=== PATIENT | female | born 1995 | race Caucasian/White ===

== ENCOUNTER 2017-08-05 07:00 | Day surgery (SDC) | payer OTHER | END 2017-08-05 20:00 | disposition home or self-care (01) | LOC: CIR.AMB 07:00 | DX: O02.1 Missed abortion (principal) ==

== ENCOUNTER 2024-01-19 14:11 | Outpatient (CLI) | payer OTHER | END 2024-01-19 14:15 | disposition home or self-care (01) | LOC: PRENATAL 14:11 | PROVIDERS: ATTEND Obstetrics & Gynecology Maternal & Fetal Medicine | DX: O36.80X0 Pregnancy with inconclusive fetal viability, not applicable or unspecified (principal); Z36.82 Encounter for antenatal screening for nuchal translucency; Z14.8 Genetic carrier of other disease; Z3A.14 14 weeks gestation of pregnancy ==

== ENCOUNTER 2024-01-31 16:16 | Emergency (ER) | payer OTHER ==
[~2024-01-31] VITALS: Ht 170.2 cm; Wt 70.8 kg
[2024-01-31] MEDS ORDERED: ELVITEG/COB/EMTRI/TENOFO DISOP 1 UDTAB TABLET PO ONE (17:30)
[2024-01-31] MEDS ORDERED: EMTRICITABINE/TENOFOV ALAFENAM 1 EACH TABLET PO ONE (17:45)
[2024-01-31 18:25] LABS: HEMATOCRIT 35.8 % (36.0-45.00); HEMOGLOBIN 12.2 g/dL (12.0-15.00); MEAN CELL VOLUME 92.7 fL (80.00-100.00); MEAN CORPUSCULAR HEMOGLOBIN 31.6 pg (27.00-32.0); MEAN CORPUSCULAR HGB CONC 34.1 g/dl (32.0-36.0); PLATELET COUNT 230 K/uL (150-450); RED BLOOD COUNT 3.86 M/uL (4.00-6.00); RED CELL DISTRIBUTION WIDTH 13.6 % (11.5-14.5)
[2024-01-31 18:58] LABS: ALBUMIN 3.1 gm/dL (3.4-5.0); BILIRUBIN TOTAL 0.14 mg/dL (0.3-1.2); CALCIUM 8.9 mg/dL (8.5-10.1); CREATININE SERUM 0.47 mg/dL (0.55-1.02); GFR 155.59; GLOBULINA 3.7 G/DL (2.4-3.5); POTASSIUM 4.13 mEq/L (3.5-5.1); TOTAL PROTEIN 6.8 gm/dL (6.4-8.2)
== END 2024-01-31 18:29 | disposition home or self-care (01) ==
LOC: ER 16:18
PROVIDERS: General Practice
DX: O26.892 Other specified pregnancy related conditions, second trimester (principal); Z3A.16 16 weeks gestation of pregnancy; S61.042A Puncture wound with foreign body of left thumb without damage to nail, initial encounter; W26.8XXA Contact with other sharp object(s), not elsewhere classified, initial encounter; Y93.F9 Activity, other caregiving; Y92.230 Patient room in hospital as the place of occurrence of the external cause; Z20.822 Contact with and (suspected) exposure to COVID-19; Z88.8 Allergy status to other drugs, medicaments and biological substances

== ENCOUNTER 2024-03-08 12:53 | Outpatient (CLI) | payer OTHER | END 2024-03-08 12:55 | disposition home or self-care (01) | LOC: PRENATAL 12:53 | PROVIDERS: ATTEND Obstetrics & Gynecology Maternal & Fetal Medicine | DX: O35.3XX0 Maternal care for (suspected) damage to fetus from viral disease in mother, not applicable or unspecified (principal); O44.00 Complete placenta previa NOS or without hemorrhage, unspecified trimester; Z3A.21 21 weeks gestation of pregnancy ==

== ENCOUNTER 2024-05-24 15:13 | Outpatient (CLI) | payer OTHER | END 2024-05-24 15:15 | disposition home or self-care (01) | LOC: PRENATAL 15:13 | PROVIDERS: ATTEND Obstetrics & Gynecology Maternal & Fetal Medicine | DX: O26.849 Uterine size-date discrepancy, unspecified trimester (principal); O36.8199 Decreased fetal movements, unspecified trimester, other fetus; O99.019 Anemia complicating pregnancy, unspecified trimester; Z3A.32 32 weeks gestation of pregnancy ==

== ENCOUNTER 2024-07-11 12:44 | Outpatient (CLI) | payer OTHER ==
[2024-07-11 11:47] VITALS: BP 117/77
[2024-07-11] MEDS ORDERED: PRENATAL + DHA1 EAC1 PO (14:01)
[2024-07-11 15:25] VITALS: BP 120/82
[2024-07-11 15:48] VITALS: BP 120/82
== END 2024-07-11 15:48 | disposition home or self-care (01) ==
LOC: OBS/DEL 12:44
PROVIDERS: ATTEND Obstetrics & Gynecology
DX: O26.893 Other specified pregnancy related conditions, third trimester (principal); Z3A.39 39 weeks gestation of pregnancy

== ENCOUNTER 2024-07-12 13:55 | Inpatient (IN) | payer OTHER ==
[~2024-07-12] VITALS: Ht 170.2 cm; Wt 3.2 kg
[~2024-07-12 13:55] MED LIST: PRENATAL + DHA1 EAC1 PO
[2024-07-12] MEDS ORDERED: RINGERS SOLUTION,LACTATED 1,000 ML IV SCH (14:15)
[2024-07-12] MEDS ORDERED: AMPICILLIN SODIUM 2,000 MG VIAL IV ONE (14:15)
[2024-07-12] MEDS ORDERED: OXYTOCIN 500 ML IV SCH (14:15)
[2024-07-12] MEDS ORDERED: AMPICILLIN SODIUM 1,000 MG VIAL IV SCH (17:00)
[2024-07-12 17:27] VITALS: BP 129/82
[2024-07-12 18:01] LABS: PROTHROMBIN TIME 9.7 SECONDS (9.0-11.5)
[2024-07-12 18:02] LABS: INR < 0.93; PARTIAL THROMBOPLASTIN TIME 26.3 SECONDS (22.0-34.0)
[2024-07-12] MEDS ORDERED: OXYTOCIN 10 UNITS/ML VIAL ONE (19:37)
[2024-07-12] MEDS ORDERED: ERYTHROMYCIN BASE OPHT 1GM EACH TUBE OP ONE (19:38)
[2024-07-12 19:53] LABS: BASO % 0.5 % (0.1-1.2); EOS % 1.5 % (0.7-7.0); HEMATOCRIT 38.7 % (34.1-44.9); HEMOGLOBIN 12.6 g/dL (11.2-15.7); LYMPH % 23.2 % (19.3-53.1); MONO % 7.6 % (4.7-12.5); NEUT % 66.8 % (34.0-71.1); PLATELET COUNT 244 K/uL (163-369)
[2024-07-12] MEDS ORDERED: MORPHINE SULFATE 4 MG/ML VIAL IV SCH (21:00)
[2024-07-12] MEDS ORDERED: AMPICILLIN SODIUM 1,000 MG VIAL ONE (21:39)
[2024-07-12 21:41] LABS: PH,URINE 7.5 (5.0-8.0); URINE APPEARANCE Clear; URINE BACTERIA 59.9 uL (0.0-1933); URINE BILIRRUBIN Negative (NEGATIVE); URINE COLOR Yellow; URINE EPITHELIAL CELLS 15.1 uL (0.0-38.8); URINE GLUCOSE Negative (NEGATIVE); URINE KETONE Negative (NEGATIVE); URINE LEUKOCYTE Negative; URINE NITRATE Negative; URINE PROTEIN Negative (NEGATIVE); URINE RBC 47.5 uL (0.0-20.8); URINE WBC 3.3 uL (0.0-23.2)
[2024-07-12 21:46] LABS: URINE BLOOD TRACE
[2024-07-12] MEDS ORDERED: MORPHINE SULFATE 4 MG/ML VIAL IV ONE (22:00)
[2024-07-12 22:40] VITALS: BP 119/77
[2024-07-13 00:26] VITALS: BP 121/73
[2024-07-13] MEDS ORDERED: KETOROLAC TROMETHAMINE 30 MG VIAL IV PRN (01:45)
[2024-07-13 06:07] VITALS: BP 117/71
[2024-07-13 07:09] LABS: HEMOGLOBIN 11.7 g/dL (11.2-15.7); RED BLOOD COUNT 3.84 M/uL (3.93-5.22)
[2024-07-13 07:10] LABS: BASO % 0.3 % (0.1-1.2); EOS # 0.03 (0.04-0.54); EOS % 0.2 % (0.7-7.0); HEMATOCRIT 35.4 % (34.1-44.9); LYMPH # 1.63 (1.18-3.74); LYMPH % 12.3 % (19.3-53.1); MEAN CORPUSCULAR HEMOGLOBIN 30.5 pg (25.6-32.2); MONO # 0.77 (0.24-0.82); MONO % 5.8 % (4.7-12.5); NEUT # 10.78 (1.56-6.13); PLATELET COUNT 196 K/uL (163-369); RED CELL DISTRIBUTION WIDTH 15.7 % (11.6-14.4)
[2024-07-13 08:00] VITALS: BP 110/69
[2024-07-13] MEDS ORDERED: OxyCODONE HCL 5 MG TABLET (ROXICODONE) PO PRN (08:00)
[2024-07-13] MEDS ORDERED: ACETAMINOPHEN 325 MG TABLET PO SCH (08:00)
[2024-07-13] MEDS ORDERED: OxyCODONE HCL/APAP UD (PERCOCET) PO PRN (08:00)
[2024-07-13] MEDS ORDERED: DOCUSATE SODIUM 100MG CAP PO SCH (09:00)
[2024-07-13] MEDS ORDERED: SIMETHICONE 125 MG CAPSULE PO SCH (09:00)
[2024-07-13] MEDS ORDERED: PNV,CALCIUM 72/IRON/FOLIC ACID 1 TAB TABLET PO SCH (09:00)
[2024-07-13 15:47] VITALS: BP 111/73
[2024-07-14 00:18] VITALS: BP 114/75
[2024-07-14 04:55] VITALS: BP 117/80
[2024-07-14 08:54] VITALS: BP 117/78; O2SAT 98
[2024-07-14 13:00] VITALS: BP 110/75; O2SAT 98
[2024-07-14 16:13] VITALS: BP 130/70
[2024-07-15] VITALS: BP 134/80
[2024-07-15 08:13] VITALS: BP 122/73
[2024-07-15] MEDS ORDERED: IBUprofen 600 MG TABLET PO PRN (10:45)
== END 2024-07-15 19:09 | disposition home or self-care (01) | DRG 788 ==
LOC: OB/GYN 13:55 → LDR 13:55 → O/R 20:11 → OB/GYN 20:28
PROVIDERS: ADMIT Obstetrics & Gynecology; ATTEND Obstetrics & Gynecology
PROC: 4A1HXCZ Monitoring of Products of Conception, Cardiac Rate, External Approach (ICD-10-PCS; 2024-07-12)
PROC: 10D00Z1 Extraction of Products of Conception, Low, Open Approach (ICD-10-PCS; principal; 2024-07-12 19:00)
DX: O42.02 Full-term premature rupture of membranes, onset of labor within 24 hours of rupture (principal); Z3A.39 39 weeks gestation of pregnancy; Z37.0 Single live birth